=== PATIENT | female | born 1960 | race Caucasian/White ===

== ENCOUNTER → 2018-05-03 13:11 | Outpatient (CLI) | payer OTHER, SELFPAY ==
--- NOTE | 2018-05-03 | DI.MG.S_ITS ---
BILATERAL DIGITAL SCREENING MAMMOGRAM 3D/2D WITH CAD: 05/03/2018 CLINICAL: Routine screening. Family history of breast cancer. Comparison is made to exams dated: 05/01/2016 mammogram, 05/02/2017 mammogram, and 04/30/2015 mammogram - [facility]. The tissue of both breasts is predominantly fatty. Current study was also evaluated with a Computer Aided Detection (CAD) system. There are benign calcifications in the right breast. No significant masses, calcifications, or other findings are seen in either breast. There has been no significant interval change. IMPRESSION: BENIGN There is no mammographic evidence of malignancy. A 1 year screening mammogram is recommended. This exam was interpreted at Station ID: [id number]. NOTE: For mammograms, a report in lay terms will be sent to the patient. Approximately 15% of breast malignancies will not be visualized mammographically. In the management of a palpable breast mass, a negative mammogram must not discourage biopsy of a clinically suspicious lesion. Electronically Signed By: Addison ibrahim/nick:05/03/2018 18:32:56 copy to: Jocelyn Smalls letter sent: Normal Exam ACR BI-RADS Category 2: Benign Finding(s) 3342F
== END ==
PROVIDERS: Family Provider Internal Medicine; PCP Internal Medicine; Visit Provider Internal Medicine
DX: Z12.31 Encounter for screening mammogram for malignant neoplasm of breast (principal); Z80.3 Family history of malignant neoplasm of breast
CPT/HCPCS: 77063; 77067

== ENCOUNTER 2018-07-29 07:24 | Day surgery (SDC) | payer OTHER, SELFPAY ==
--- NOTE | 2018-07-29 | PATH_ITS ---
[facility] Accession Number: [id number] . 01 Material submitted: . PART A: SIGMOID POLYP AT 25 PART B: SIGMOID POLYP AT 18 TIMES 2 . 02 Diagnosis: A. Sigmoid Colon Polyp at 25 cm: Hyperplastic polyp. . B. Sigmoid Colon Polyps at 18 cm: Fragments of tubular adenoma (two polyps removed). MRV/07/30/2018 . 02 Electronically signed: . Otto Beltran MD, PhD, Pathologist NPI- [id number] . 01 Gross description: . Received two formalin-filled containers, both labeled with the patient's name: . A. In a container labeled sigmoid polyp at 25, are two 0.2-0.4 cm portions of tissue, entirely submitted in cassette A. B. In a container labeled sigmoid polyp at 18 x2, are multiple 0.1-0.4 cm portions of tissue, entirely submitted in cassette B. ([id number]) /FRR . 02 Pathologist provided ICD-10: D12.5 . 02 CPT . 038807, [id number] Specimen Comment: A duplicate report has been generated due to demographic updates. Performed at: 01 [facility] [address] [facility], [place], [place] [id number] MD Addison Connelly MD Phone: [phone] Performed at: [facility] [address] [place], [place] [id number] MD Sherrell Fabian MD Phone: [phone]
[2018-07-29 07:57] VITALS: BP 119/75; PULSE 79; RESP 16; TEMP 36.4; O2SAT 100; BMI 30.7
[2018-07-29] MEDS: SODIUM CHLORIDE 0.9% 1,000 ML 200 ML IV (08:01)
--- NOTE | 2018-07-29 08:39 | PM.HP.1 ---
History of Present Illness Date Patient Seen: 07/29/18 Time Patient Seen: 08:40 Chief complaint: colonoscopy 84189 Narrative: 58-year-old female with personal history of colon polyps diagnosed 5 years ago a colonoscopy as well as a family history of colon cancer in her mother. She presents for colorectal surveillance. On further history today she denies any recent gastrointestinal symptoms. No nausea, vomiting, loss of appetite, unexplained weight loss, abdominal pain, change in bowel habits, diarrhea, constipation, melena, hematochezia, or bright red blood per rectum. Patient History Medical History Asthma (Acute) Diverticulosis (Acute) Family history of colon cancer in mother (Acute) Personal history of colonic polyps (Acute) Surgical History History of colonoscopy (Acute) History of laparoscopic adjustable gastric banding (Acute) Status post breast reduction Family & Social History Family History: Reviewed 07/29/18 by Eddi Roy MD Social History: household members friend(s) Meds Allergies Allergy/AdvReac Type Severity Reaction Status Date / Time ibuprofen [IBUPROFEN] Allergy Severe TROUBLE Unverified 12/26/17 13:03 BREATHING Review of Systems Review of Systems All systems reviewed & are unremarkable except as noted in HPI and below Exam Vital Signs (past 8 hours): - 07/29/18 07:57 Temperature 97.5 F L Pulse Rate 79 Respiratory Rate 16 Blood Pressure 119/75 Pulse Oximetry 100 Oxygen Delivery Method Room Air Narrative Exam Narrative: Well-nourished well-developed female in no acute distress. Alert oriented x3. Mother is at the bedside throughout my entire visit. Sclera nonicteric Regular rate rhythm Abdomen soft, nondistended, nontender Extremities show no clubbing, cyanosis, or edema Objective Labs Labs: No recent laboratory or radiographic studies for review Assessment & Plan Plan: Assessment/Plan Narrative: 58-year-old female with personal history of colon polyps and family history of colon cancer in her mother. It has been 5 years since her last colonoscopy. She requires colorectal surveillance for neoplasia. Colonoscopy is once again recommended. Technical details of the procedure were discussed. Risks, benefits, alternatives were explained. Risks including but not limited to sedation, aspiration, bleeding, pain, missed lesion, incomplete examination, need for further radiographic studies, colonic perforation, need for major abdominal surgery, and all attendant risks of major surgery were discussed at length. All questions were answered to her satisfaction, and she voiced understanding. Consent was placed on the chart. We will proceed as above.
--- NOTE | 2018-07-29 08:43 | PM.PREOP ---
Pre-operative Note Interval Note Pre-op Check: Yes History & Physical Reviewed by Physician, Yes Exam Performed and Yes History & Physical exam performed today by Physician Changes: No H&P completed within 30 days and has changed as indicated here:: Patient seen and examined today. History and physical examination documented and placed on the chart. We will proceed today as planned with colonoscopy. ASA Class (for procedural sedation): I
[2018-07-29] MEDS: MIDAZOLAM 5 MG/5 ML VIAL IV (08:55)
[2018-07-29] MEDS: fentaNYL 250 MCG/5 ML INJ IV (08:56)
--- NOTE | 2018-07-29 09:12 | PM.OP.ENDO ---
Operative Date/Time/Diagnoses Date of procedure: 07/29/18 Time of procedure: 09:12 Pre-op diagnosis: Personal history of colon polyps and family history of colon cancer Post-op diagnosis: other (Diverticulosis and colon polyps) Procedure & Clinicians Study performed: 1. Sedation per surgeon 2. Colonoscopy with hot snare polypectomy and cold forceps polypectomy Same procedure as scheduled: Yes Indications: 58-year-old female with personal history of colon polyps and family history of colon cancer in her mother. Her last colonoscopy was 5 years ago. She presents now for colorectal surveillance. Colonoscopy is once again recommended. Surgeon: Eddi Roy Procedure Notes SCOAP/Timeout: Yes Procedure in detail: After obtaining informed consent, the patient was brought to the GI suite and placed in the left lateral decubitus position on the examination table. After placement of appropriate monitors, the patient was given incremental doses of Versed and Fentanyl until an appropriate level of sedation was achieved. A time out was held per SCOAP protocol. A digital rectal examination was performed and did not reveal any masses or obstructing lesions. The colonoscope was gently passed into the patient's anus and the entire colon navigated to the level of the cecum with minimal difficulty. Once in the cecum, the scope was withdrawn being sure to go before and beyond all mucosal folds and prominences and get an excellent examination. The findings are noted above. At the level of the rectal vault, the scope was retroflexed and the internal anal canal was examined. The scope was straightened and air aspirated from the colon. The instrument was removed from the patient's body and the procedure was concluded. The patient was allowed to awaken from sedation without difficulty and taken to the post-anesthesia care unit in good condition. Scope withdrawal time: 17:33 min Sedation minutes: 26 Findings: diverticulosis and polyp Specimen(s): other (1. Sigmoid colon polyp at 25 cm 2. Sigmoid colon polyps x2 at 18 cm) Complications: none Recommendations: Colonscopy in 5 years, High fiber diet and Will call with biopsy results Plan for aftercare: 1. Discharge home Follow up: as needed Disposition: PACU
[2018-07-29 09:14] VITALS: BP 108/66; PULSE 82; RESP 18; TEMP 36.6; O2SAT 96
[2018-07-29 09:19] VITALS: BP 109/66; PULSE 79; RESP 14; O2SAT 98
[2018-07-29 09:27] VITALS: BP 104/73; PULSE 73; RESP 15; TEMP 36.8; O2SAT 98
== END 2018-07-29 09:47 | disposition home or self-care (01) ==
PROVIDERS: Surgery; PCP Internal Medicine; Visit Provider Surgery
PROC: 0DJD8ZZ Inspection of Lower Intestinal Tract, Via Natural or Artificial Opening Endoscopic (ICD-10-PCS; CPT 45378; principal; 2018-07-29 08:45)
DX: Z86.010 Personal history of colon polyps (principal); Z80.0 Family history of malignant neoplasm of digestive organs; J45.909 Unspecified asthma, uncomplicated; K57.30 Diverticulosis of large intestine without perforation or abscess without bleeding; D12.5 Benign neoplasm of sigmoid colon
CPT/HCPCS: 45385; 45380; 99152; 99153; J2250; J3010

== ENCOUNTER → 2019-05-16 11:44 | Outpatient (CLI) | payer OTHER, SELFPAY ==
--- NOTE | 2019-05-16 | DI.MG.S_ITS ---
BILATERAL DIGITAL SCREENING MAMMOGRAM 3D/2D WITH CAD: 05/16/2019 CLINICAL: Routine screening. Family history of breast cancer. Comparison is made to exams dated: 05/03/2018 mammogram, 05/02/2017 mammogram, 05/01/2016 mammogram, 04/30/2015 mammogram, and 04/24/2014 mammogram - [facility]. The tissue of both breasts is predominantly fatty. Current study was also evaluated with a Computer Aided Detection (CAD) system. There are stable benign calcifications in the right breast. No significant masses, calcifications, or other findings are seen in either breast. There has been no significant interval change. IMPRESSION: There is no mammographic evidence of malignancy. A 1 year screening mammogram is recommended. This exam was interpreted at Station ID: [id number]. NOTE: For mammograms, a report in lay terms will be sent to the patient. Approximately 15% of breast malignancies will not be visualized mammographically. In the management of a palpable breast mass, a negative mammogram must not discourage biopsy of a clinically suspicious lesion. Electronically Signed By: Dharmesh julien/nick:05/16/2019 12:22:51 copy to: Jocelyn Smalls letter sent: Normal Exam ACR BI-RADS Category 2: Benign Finding(s) 3342F
== END ==
PROVIDERS: Family Provider Specialist; PCP Naturopath; Visit Provider Naturopath
DX: Z12.31 Encounter for screening mammogram for malignant neoplasm of breast (principal); Z80.3 Family history of malignant neoplasm of breast
CPT/HCPCS: 77063; 77067

== ENCOUNTER → 2020-05-19 08:13 | Outpatient (CLI) | payer OTHER, SELFPAY ==
--- NOTE | 2020-05-19 08:22 | DI.MG.S_ITS ---
Patient Name: NICCI SANCHES date: 1960 Sex: F Attending Physician: Petra Indications: Date: 05/19/2020 08:30 At the request of: EMILY VIRAMONTES Procedure: MM screening mammo BI BILATERAL DIGITAL SCREENING MAMMOGRAM 3D/2D WITH CAD: 05/19/2020 CLINICAL: Routine screening. Family history of breast cancer. Comparison is made to exams dated: 05/16/2019 mammogram, 05/03/2018 mammogram, and 05/02/2017 mammogram - [facility]. The tissue of both breasts is predominantly fatty. Current study was also evaluated with a Computer Aided Detection (CAD) system. There are benign calcifications in the right breast. There also are benign post operative findings in the right breast. No significant masses, calcifications, or other findings are seen in either breast. There has been no significant interval change. IMPRESSION: BENIGN There is no mammographic evidence of malignancy. A 1 year screening mammogram is recommended. This exam was interpreted at Station ID: [id number]. NOTE: For mammograms, a report in lay terms will be sent to the patient. Approximately 15% of breast malignancies will not be visualized mammographically. In the management of a palpable breast mass, a negative mammogram must not discourage biopsy of a clinically suspicious lesion. Electronically Signed By: Rachelle carrillo/nick:05/19/2020 08:44:04 copy to: Jocelyn Smalls letter sent: Normal Exam ACR BI-RADS Category 2: Benign Finding(s) 3342F Continued Report - Page 2 of 2 Patient Name: NICCI SANCHES date: 1960 Sex: F Attending Physician: Petra Indications: Date: 05/19/2020 08:30 At the request of: EMILY VIRAMONTES Procedure: MM screening mammo BI
== END ==
PROVIDERS: Family Provider Specialist; PCP Naturopath; Referring Provider Naturopath; Visit Provider Naturopath
DX: Z12.31 Encounter for screening mammogram for malignant neoplasm of breast (principal); Z80.3 Family history of malignant neoplasm of breast
CPT/HCPCS: 77063; 77067

== ENCOUNTER → 2021-06-15 08:24 | Outpatient (CLI) | payer OTHER, SELFPAY ==
--- NOTE | 2021-06-15 | DI.MG.S_ITS ---
BILATERAL DIGITAL SCREENING MAMMOGRAM 3D/2D WITH CAD: 06/15/2021 CLINICAL: Routine screening. Family history of breast cancer. Comparison is made to exams dated: 05/19/2020 mammogram, 05/16/2019 mammogram, 05/03/2018 mammogram, 05/02/2017 mammogram, and 05/01/2016 mammogram - [facility]. The tissue of both breasts is predominantly fatty. Current study was also evaluated with a Computer Aided Detection (CAD) system. There are benign calcifications in the right breast. There also are benign post operative findings in the right breast. No significant masses, calcifications, or other findings are seen in either breast. There has been no significant interval change. IMPRESSION: BENIGN There is no mammographic evidence of malignancy. A 1 year screening mammogram is recommended. This exam was interpreted at Station ID: [id number]. NOTE: For mammograms, a report in lay terms will be sent to the patient. Approximately 15% of breast malignancies will not be visualized mammographically. In the management of a palpable breast mass, a negative mammogram must not discourage biopsy of a clinically suspicious lesion. Electronically Signed By: Lincoln Ernst acr/nick:06/15/2021 09:36:05 letter sent: Normal Exam ACR BI-RADS Category 2: Benign Finding(s) 3342F
== END ==
PROVIDERS: Family Provider Specialist; PCP Naturopath; Referring Provider Naturopath
DX: Z12.31 Encounter for screening mammogram for malignant neoplasm of breast (principal)
CPT/HCPCS: 77063; 77067

== ENCOUNTER → 2022-06-16 12:58 | Outpatient (CLI) | payer OTHER, SELFPAY ==
--- NOTE | 2022-06-16 | DI.MG.S_ITS ---
BILATERAL DIGITAL SCREENING MAMMOGRAM 3D/2D WITH CAD: 06/16/2022 CLINICAL: Routine screening. Family history of breast cancer. Comparison is made to exams dated: 06/15/2021 mammogram, 05/19/2020 mammogram, 05/16/2019 mammogram, 05/03/2018 mammogram, and 05/02/2017 mammogram - [facility]. Both breasts are almost entirely fatty (category a/<25% glandular tissue). Current study was also evaluated with a Computer Aided Detection (CAD) system. There are benign calcifications in the right breast. There also are benign post operative findings in the right breast. No significant masses, calcifications, or other findings are seen in either breast. There has been no significant interval change. IMPRESSION: BENIGN There is no mammographic evidence of malignancy. A 1 year screening mammogram is recommended. Based on the Tyrer Cuzick model (a risk assessment model) the patient's lifetime risk is 10.5% and her 10 year risk is 4.6%. According to the ACR, ACS, and NCCN guidelines, an annual breast MRI exam along with mammogram is recommended if the patient's lifetime risk is 20% or greater. This exam was interpreted at Station ID: [id number]. NOTE: For mammograms, a report in lay terms will be sent to the patient. Approximately 15% of breast malignancies will not be visualized mammographically. In the management of a palpable breast mass, a negative mammogram must not discourage biopsy of a clinically suspicious lesion. Electronically Signed By: Dharmesh juilen/nick:06/16/2022 16:06:07 letter sent: Normal Exam ACR BI-RADS Category 2: Benign Finding(s) 3342F
== END ==
PROVIDERS: Family Provider Specialist; PCP Naturopath; Referring Provider Naturopath; Visit Provider Naturopath
DX: Z12.31 Encounter for screening mammogram for malignant neoplasm of breast (principal); Z80.3 Family history of malignant neoplasm of breast
CPT/HCPCS: 77063; 77067

== ENCOUNTER 2022-12-19 08:13 | Day surgery (SDC) | payer OTHER, SELFPAY ==
[2022-12-19 08:31] VITALS: BP 137/80; PULSE 89; RESP 16; TEMP 36.5; O2SAT 98; BMI 26.6
[2022-12-19] MEDS: LACTATED RINGERS 1,000 ML 150 ML IV (08:38)
--- NOTE | 2022-12-19 09:07 | PM.HP.1 ---
History of Present Illness History of Present Illness Date Patient Seen: 12/19/22 Time Patient Seen: 09:07 Chief complaint: [facility] [place] [facility] Narrative: Colon cancer screening, this will be her 4th colonoscopy. Self history of colon polyps. Grandmother over age 60 diagnosed with rectal cancer. No symptoms [facility] Medical History Abnormal Pap smear of cervix (~1989) Asthma (~1967) Chicken pox Diverticulosis Family history of colon cancer in mother Measles Mumps Personal history of colonic polyps (~2013) Rubella Seasonal allergies Surgical History Anesthesia History of colonoscopy History of laparoscopic adjustable gastric banding (~2004) Status post breast reduction (~1989) Family History Father Heart disease Grandmother Stroke Mother Stroke Grandfather Stroke Grandmother Cancer Grandfather No problems noted. Social History household members: friend(s) Smoking Status: Never smoker Meds Home Medications and Allergies Home Medications Medication Instructions Recorded Confirmed Type simvastatin 20 mg tablet 20 mg PO DAILY 10/04/20 12/19/22 History Allergies Allergy/AdvReac Type Severity Reaction Status Date / Time ibuprofen [IBUPROFEN] Allergy Severe TROUBLE Verified 12/19/22 08:24 BREATHING Review of Systems Review of Systems ROS: Yes All systems reviewed with the patient and are negative except as otherwise documented Exam Vital Signs (past 8 hours): - 12/19/22 08:31 Temperature 97.7 F Pulse Rate 89 Respiratory Rate 16 Blood Pressure 137/80 Pulse Oximetry 98 Oxygen Delivery Method Room Air Oxygen Delivery Method Room Air Const General: cooperative and healthy appearing [facility] Head: normocephalic and atraumatic Eyes General: appearance normal, both eyes and all related structures Sclera: sclerae normal Neck Neck: trachea midline Resp Effort & Inspection: normal respiratory effort and able to speak in complete sentences Cardio Rate: regular rate Rhythm: regular rhythm GI Palpation: soft Skin General: elasticity normal Neuro General: patient alert, patient awake and patient oriented x3 Cognition: normal cognition Speech: speech normal Psych Appearance: grossly normal Mental Status: mental status grossly normal Judgment: judgment good Assessment & Plan Assessment & Plan narrative: colon cancer screening with h/o colon polyps. MAC as anesthetic Time Spent With Patient Time with patient: less than 30 minutes
--- NOTE | 2022-12-19 09:13 | PM.OP.COLON ---
Operative Date/Time/Diagnoses Date of procedure: 12/19/22 Time of procedure: 09:13 Pre-op diagnosis: h/o colon polyps Post-op diagnosis: same Procedure & Clinicians Study performed: colonoscopy using MAC Same procedure as scheduled: Yes Indications: h/o colon polyps Surgeon: Darby Restrepo Procedure Notes Procedure in detail: Preop diagnosis: History of colon polyps Postop diagnosis: Same Operative procedure: Colonoscopy using MAC Surgeon: Mirella Restrepo MD Findings: Severe diverticulosis of the sigmoid colon. Large and medium diverticuli throughout the colon including right-sided. No polyps Procedure: Patient placed in a lateral position, rectal exam performed showing normal tone no masses. Colonoscope was inserted into the rectum and advanced to ileocecal valve with minimal difficulty. Insufflation and extraction of the scope and the above findings. Retroflex was included in the rectum. Impression: Severe diverticulosis of the sigmoid colon. Flaherty diverticulosis of moderate and large size. No polyps Plan: Repeat colonoscopy in 10 years unless other shelley indicated by change in clinical condition Findings: divertiulosis Specimen(s): none sent Complications: none Post-procedure Recommendations: Colonoscopy in 10 years Follow up: as needed Disposition: PACU
[2022-12-19 09:31] VITALS: BP 112/57; PULSE 93; RESP 16; TEMP 36.1; O2SAT 95
[2022-12-19 09:36] VITALS: BP 100/54; PULSE 90; RESP 19; O2SAT 94
[2022-12-19 09:46] VITALS: BP 114/75; PULSE 82; RESP 19; O2SAT 95
--- NOTE | 2022-12-19 09:52 | SUR.PHASEII ---
DC home with all belongings. WC ride to vehicle.
== END 2022-12-19 10:00 | disposition home or self-care (01) ==
PROVIDERS: Family Provider Specialist; PCP Naturopath; Referring Provider Surgery; Visit Provider Surgery
PROC: 0DJD8ZZ Inspection of Lower Intestinal Tract, Via Natural or Artificial Opening Endoscopic (ICD-10-PCS; CPT 45378; principal; 2022-12-19 09:15)
DX: Z12.11 Encounter for screening for malignant neoplasm of colon (principal); Z86.010 Personal history of colon polyps; K57.30 Diverticulosis of large intestine without perforation or abscess without bleeding
CPT/HCPCS: 45378; J2704